=== PATIENT | male | born 1955 | race Caucasian/White ===

== ENCOUNTER 2020-09-19 09:04 | Outpatient (CLI) | payer MEDICARE, SELFPAY ==
[2020-09-19 09:24] LABS: Hematocrit 47.6 % (37.0-46.0); Hemoglobin 15.4 g/dL (12.4-15.3); Mean Corpuscular HGB Conc 32.4 g/dL (32.0-36.0); Mean Corpuscular Hemoglobin 30.7 pg (27.0-31.0); Mean Corpuscular Volume 94.8 fL (78.0-102.0); Platelet Count Result 215 K/mm3 (150-420); Red Blood Count 5.02 M/mm3 (4.70-6.10); White Blood Count 7.3 K/mm3 (4.8-10.8)
[2020-09-19 10:29] LABS: Alanine Aminotransferase 32 U/L (16-63); Albumin Level 4.1 g/dL (3.4-5.0); Alkaline Phosphatase 45 U/L (46-116); Anion Gap 6 mmol/L (8-16); Aspartate Amino Transferase 38 U/L (15-37); Bilirubin,Total 0.5 mg/dL (0.00-1.00); Blood Urea Nitrogen 24 mg/dL (7-18); Calcium 9.3 mg/dL (8.5-10.1); Carbon Dioxide 29 mmol/L (21-32); Chloride 104 mmol/L (98-108); Cholesterol 159 mg/dL (0-200); Estimated Glomerular Filt Rate 44; Folic Acid 13.5 ng/mL (8.6->20); Glucose 92 mg/dL (70-99); HDL Direct 28 mg/dL (40-60); LDL Cholesterol Calculated 67 mg/dL (<130); Osmolality Calculated 292 mOsm/kg (285-295); Potassium 4.9 mmol/L (3.5-5.1); Sodium 139 mmol/L (136-145); Total Protein 7.3 g/dL (6.4-8.2); Triglycerides 319 mg/dL (0-150); Vitamin B12 1112 pg/mL (193-986)
[2020-09-19 10:34] LABS: Free T4 Free Thyroxine Reflex 0.99 ng/dL (0.76-1.46); Thyroid Stimulating Hormone Reflex 4.63 u/IU/mL (0.36-3.74)
== END 2020-09-19 09:05 | disposition home or self-care (01) ==
PROVIDERS: PCP Family Medicine; Visit Provider Family Medicine
DX: E78.5 Hyperlipidemia, unspecified (principal); F32.9 Major depressive disorder, single episode, unspecified; M10.9 Gout, unspecified; I25.10 Atherosclerotic heart disease of native coronary artery without angina pectoris; E53.8 Deficiency of other specified B group vitamins
CPT/HCPCS: 36415; 80053; 80061; 82607; 82746; 84439; 84443; 85027

== ENCOUNTER 2020-09-29 07:18 | Outpatient (CLI) | payer MEDICARE, SELFPAY ==
--- NOTE | ~2020-09-29 | XR_ITS ---
XR knee RT 3V DATE: 09/29/2020 08:42 INDICATION: Anterior knee pain for 2 months. No known injury. TECHNIQUE: [place], AP and lateral views COMPARISON: None FINDINGS: No fracture or dislocation or joint effusion. No periosteal reaction or bone destruction. J oint spaces are well preserved. Minimal periarticular spurring of the patella. No radiopaque intra-ar ticular loose body or chondrocalcinosis. 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
--- NOTE | 2020-09-29 07:25 | EST_ITS ---
Patient Info Name: Raymundo Lopez Age: 65 years : 1955 Gender: Male Ht: 68 in Wt: 208 lbs BSA: 2.16 m2 HR: 60 bpm BP: 155 / 86 mmHg Heart Rhythm: Sinus Rhythm Technical Quality: Excellent Exam Date: 09/29/2020 8:52 AM Exam Location: [facility] [place] Patient Status: Outpatient Admit Date: 09/29/2020 Staff Ordering Physician: Kingsley Sosa DO Attending Provider: Kingsley Sosa DO Referring Physician: Kingsley Sosa DO; Exercise Technologist: Silvia Vizcarra CRT Exercise Physician: Samra Machado CEP Exam Type: CA stress test treadmill w NM Study Info Indications AthleroscleroticHeartDisease - An exercise stress test was performed. History/Risk Factors Coronary Artery Disease (CAD) Yes History/Risk Factors CAD. Summary 1. 1. Negative Hernán exercise stress test for ischemic ST changes by ECG criteria. 2. 2. Reduced functional capacity, achieving 7.9 METs of workload. 3. 3. Baseline hypertension with hypertensive response to exercise. 4. 4. Appropriate HR response to exercise. 5. 5. Appropriate HR recovery at 1 minute post exercise. 6. 6. Nuclear scan to follow and will be reported separately. Please correlate with it. Protocol: Hernán Stress ECG Details Stage: REST Duration (min): 0 min : 12 sec Speed (mph): 0.0 Grade (%): 0 HR (bpm): 61 SBP (mmHg): --- DBP (mmHg): --- METS: --- Stage: REST Duration (min): 7 min : 39 sec Speed (mph): 0.0 Grade (%): 0 HR (bpm): 60 SBP (mmHg): --- DBP (mmHg): --- METS: --- Stage: STAGE 1 Duration (min): 1 min : 0 sec Speed (mph): 1.7 Grade (%): 10 HR (bpm): 83 SBP (mmHg): --- DBP (mmHg): --- METS: --- Stage: STAGE 1 Duration (min): 2 min : 0 sec Speed (mph): 1.7 Grade (%): 10 HR (bpm): 95 SBP (mmHg): --- DBP (mmHg): --- METS: --- Stage: STAGE 1 Duration (min): 3 min : 0 sec Speed (mph): 1.7 Grade (%): 10 HR (bpm): 103 SBP (mmHg): 168 DBP (mmHg): 86 METS: --- Stage: STAGE 2 Duration (min): 1 min : 0 sec Speed (mph): 2.5 Grade (%): 12 HR (bpm): 118 SBP (mmHg): 168 DBP (mmHg): 86 METS: --- Stage: STAGE 2 Duration (min): 2 min : 0 sec Speed (mph): 2.5 Grade (%): 12 HR (bpm): 133 SBP (mmHg): 168 DBP (mmHg): 86 METS: --- Stage: STAGE 2 Duration (min): 3 min : 0 sec Speed (mph): 2.5 Grade (%): 12 HR (bpm): 141 SBP (mmHg): 198 DBP (mmHg): 98 METS: --- Stage: STAGE 3 Duration (min): 0 min : 30 sec Speed (mph): 3.4 Grade (%): 14 HR (bpm): 149 SBP (mmHg): 198 DBP (mmHg): 98 METS: --- Stage: RECOVERY Duration (min): 0 min : 29 sec Speed (mph): 0.0 Grade (%): 0 HR (bpm): 146 SBP (mmHg): 198 DBP (mmHg): 98 METS: --- Stage: RECOVERY Duration (min): 1 min : 29 sec Speed (mph): 0.0 Grade (%): 0 HR (bpm): 122 SBP (mmHg): 198 DBP (m
--- NOTE | 2020-09-29 11:39 | WPDCARIOSTRE ---
Nuclear Stress Test INDICATIONS Chest pain PROCEDURE Patient exercised on a Hernán treadmill protocol and after achieving target heart rate, 35 mCi of cardiolyte was injected. Multiple tomographic images were obtained. These were of good quality. There is no evidence of perfusion defects noted during stress imaging. A separate resting images were obtained after patient was injected with 10.7 mCi of cardiolyte. Multiple tomographic images were obtained. These were of good quality. There is no evidence of perfusion defects noted during rest imaging. CONCLUSION 1. Normal myocardial perfusion imaging demonstrating no perfusion defects during stress or rest imaging. 2. No reversible ischemia. 3. Left ventriculogram demonstrated measured ejection fraction is normal at 62%. No wall motion abnormalities. 4. TID is normal at 1.03.
== END 2020-09-29 07:19 | disposition home or self-care (01) ==
LOC: CHSIMG 07:25
PROVIDERS: PCP Family Medicine; Visit Provider Family Medicine
DX: I25.10 Atherosclerotic heart disease of native coronary artery without angina pectoris (principal); M25.569 Pain in unspecified knee
CPT/HCPCS: 73562; 78452; 93017; A9502

== ENCOUNTER → 2020-10-06 01:08 | Outpatient (CLI) | payer MEDICARE, OTHER, SELFPAY ==
[2020-10-06 18:28] LABS: SARS-CoV-2 RNA PCR Negative
== END ==
PROVIDERS: PCP Family Medicine; Visit Provider Surgery
DX: Z01.812 Encounter for preprocedural laboratory examination (principal); Z20.822 Contact with and (suspected) exposure to COVID-19
CPT/HCPCS: C9803; U0003; U0005

== ENCOUNTER 2020-10-09 01:26 | Day surgery (SDC) | payer MEDICARE, OTHER, SELFPAY ==
[2020-09-26 16:14] VITALS: BMI 30.4
[2020-10-09 07:26] VITALS: BP 116/86; PULSE 85; RESP 18; TEMP 36.7; O2SAT 97; BMI 30.8
[2020-10-09] MEDS: LACTATED RINGERS 1,000 ML 150 ML IV CONT (07:35)
--- NOTE | 2020-10-09 07:52 | WPDANESEPPF ---
Anes - Initial Pre Proc Eval Procedure: Operation Date: 10/09/20 08:30 Proposed Procedures p Screening Colonoscopy - Jairo Espinoza DO Date/Time: 10/09/20 07:52 Surgeon: Jairo Espinoza DO Pre Op Diagnosis: family hx colon CA Patient Data Age: 65 Gender: M Height: 1.73 m Weight: 92 kg Last Vital Signs Temp 36.7 C 10/09/20 07:26 Pulse 85 10/09/20 07:26 Resp 18 10/09/20 07:26 BP 116/86 10/09/20 07:26 Pulse Ox 97 10/09/20 07:26 Allergies Allergy/AdvReac Type Severity Reaction Status Date / Time Penicillins Allergy Unknown Swelling Verified 10/09/20 07:24 Home Medications Medication Instructions Recorded Confirmed Type brimonidine 0.2 % eye drops 1 drp OPHTHALMIC (EYE) Q8H 09/19/20 09/26/20 History bupropion HCl 75 mg tablet 75 mg PO BID 09/19/20 09/26/20 History dorzolamide 2 % eye drops 1 drp OPHTHALMIC (EYE) TID 09/19/20 09/26/20 History hydroxyzine HCl 25 mg tablet 25 mg PO BID PRN 09/19/20 09/26/20 History latanoprost 0.005 % eye drops 1 drp OPHTHALMIC (EYE) DAILY 09/19/20 09/26/20 History naproxen 500 mg tablet 500 mg PO BID PRN 09/19/20 09/26/20 History simvastatin 40 mg tablet 40 mg PO DAILY 09/19/20 09/26/20 History levothyroxine 50 mcg tablet See Rx Instructions .ROUTE 09/22/20 09/26/20 Rx .COMPLEX #90 tablet lisinopril 5 mg tablet See Rx Instructions .ROUTE 09/22/20 09/26/20 Rx .COMPLEX #90 tablet citalopram 20 mg PO DAILY 09/26/20 09/26/20 History Patient hx anesthesia problems: none Family hx anesthesia problems: none PMFSH Past Medical History Medical History (Updated 10/09/20 @ 07:54 by Natanael Perez MD) Coronary artery disease Depression Gout History of stroke 25yrs ago HTN (hypertension) Hyperlipidemia Hypothyroidism Obesity Surgical History Surgical History (Updated 09/19/20 @ 08:00 by Shana Castaneda) History of lithotripsy History of vasectomy Hx of tonsillectomy Family History Family History (Updated 09/19/20 @ 08:02 by Shana Castaneda) Father Carcinoma of colon Mother , Age 98 Old age Social History Social History (Updated 09/19/20 @ 08:01 by Shana Castaneda) Smoking status: Never smoker Alcohol use details: infrequent Living arrangements: with family Gender identity (if verbalized by the patient): Male Spiritual care concerns: No Anes - Eval Final PreProcedure Day of Procedure 10/09/20 07:52 Patient weight: obese Heart: regular rate and rhythm Lungs: clear to auscultation and normal air movement Airway: Mallampati scale class II Neurological: alert and oriented Last oral intake: >/= 8 hours ASA classification: III Emergent: no Anesthetic plan: proceed Anesthesia type and monitoring: general GIVS Informed Consent: The patient's anesthetic plan and its attendant risks and benefits were discussed with the patient/family/POA. Questions were solicited and answers provided to the satisfaction of the patient/family/POA.
--- NOTE | 2020-10-09 08:33 | PM.IMHP ---
H&P: HPI History of Present Illness Date/Time: 10/09/20 08:33 Chief Complaint: hx polyps Narrative: Raymundo Lopez is a 65 year old male who presents for colonoscopy. Last done 6 years ago and polyps removed. He has fam hx colon cancer in his father. Denies blood in stool. Review of Systems Review of Systems: All systems reviewed & are unremarkable except as noted in HPI and below Constitutional: Constitutional: Denies chills, Denies fever(s), Denies headache(s) and Denies weight loss Eyes: Eyes: Denies change in vision ENT: Denies dizziness, Denies headache(s), Denies neck mass and Denies throat swelling Cardiovascular: Cardiovascular: Denies chest pain, Denies lightheadedness and Denies dyspnea Respiratory: Respiratory: Denies cough, Denies dyspnea and Denies wheezing Gastrointestinal: Gastrointestinal: Denies abdominal pain, Denies change in bowel habits, Denies nausea and Denies vomiting Genitourinary: Genitourinary: Denies hematuria and Denies dysuria Musculoskeletal: Musculoskeletal: Reports as per HPI Integumentary/Breasts: Skin/Breast: Reports as per HPI Neurologic: Denies dizziness and Denies headache(s) Allergic/Immunologic: Allergic/Immunologic: Denies throat swelling and Denies wheezing PMFSH Past Medical History Medical History Coronary artery disease Depression Gout History of stroke 25yrs ago HTN (hypertension) Hyperlipidemia Hypothyroidism Obesity Surgical History Surgical History History of lithotripsy History of vasectomy Hx of tonsillectomy Family History Family History Father Carcinoma of colon Mother , Age 98 Old age Social History Social History Smoking status: Never smoker Alcohol use details: infrequent Living arrangements: with family Gender identity (if verbalized by the patient): Male Spiritual care concerns: No Meds Home Medications and Allergies Home Medications Medication Instructions Recorded Confirmed Type brimonidine 0.2 % eye drops 1 drp OPHTHALMIC (EYE) Q8H 09/19/20 09/26/20 History bupropion HCl 75 mg tablet 75 mg PO BID 09/19/20 09/26/20 History dorzolamide 2 % eye drops 1 drp OPHTHALMIC (EYE) TID 09/19/20 09/26/20 History hydroxyzine HCl 25 mg tablet 25 mg PO BID PRN 09/19/20 09/26/20 History latanoprost 0.005 % eye drops 1 drp OPHTHALMIC (EYE) DAILY 09/19/20 09/26/20 History naproxen 500 mg tablet 500 mg PO BID PRN 09/19/20 09/26/20 History simvastatin 40 mg tablet 40 mg PO DAILY 09/19/20 09/26/20 History levothyroxine 50 mcg tablet See Rx Instructions .ROUTE 09/22/20 09/26/20 Rx .COMPLEX #90 tablet lisinopril 5 mg tablet See Rx Instructions .ROUTE 09/22/20 09/26/20 Rx .COMPLEX #90 tablet citalopram 20 mg PO DAILY 09/26/20 09/26/20 History Allergies Allergy/AdvReac Type Severity Reaction Status Date / Time Penicillins Allergy Unknown Swelling Verified 10/09/20 07:24 Vital Signs Vital Signs - 24 hr 10/09/20 07:26 Temperature 36.7 C Pulse Rate 85 Respiratory Rate 18 Blood Pressure 116/86 Pulse Oximetry 97 Exam Const: General: no acute distress and alert Orientation/consciousness: patient oriented x3 HENMT: Head: normocephalic and atraumatic Ears: hearing grossly normal bilaterally General nose exam: Normal nares present Mouth: Yes Normal oral and palatal mucosa present Eyes: Periorbital: periorbital findings normal Sclera: sclerae normal EOM: EOMs intact bilaterally Neck: Neck: normal visual inspection, no lymphadenopathy and trachea midline Chest: Chest palpation & inspection: normal inspection of the chest Resp: Effort & Inspection: normal respiratory effort Auscultation: clear to auscultation bilaterally Cardio: Jugular venous distension: no JVD
[2020-10-09 09:03] VITALS: BP 86/56; PULSE 67; RESP 19; O2SAT 94
[2020-10-09 09:13] VITALS: BP 111/82; PULSE 69; RESP 19; O2SAT 97
[2020-10-09 09:23] VITALS: BP 104/87; PULSE 76; RESP 21; O2SAT 98
== END 2020-10-09 09:37 | disposition home or self-care (01) ==
PROVIDERS: PCP Family Medicine; Visit Provider Surgery
PROC: 0DJD8ZZ Inspection of Lower Intestinal Tract, Via Natural or Artificial Opening Endoscopic (ICD-10-PCS; CPT 45378; principal; 2020-10-09 08:30)
DX: Z12.11 Encounter for screening for malignant neoplasm of colon (principal); D12.5 Benign neoplasm of sigmoid colon; K63.5 Polyp of colon; K57.30 Diverticulosis of large intestine without perforation or abscess without bleeding; Z80.0 Family history of malignant neoplasm of digestive organs; I25.10 Atherosclerotic heart disease of native coronary artery without angina pectoris; I10 Essential (primary) hypertension; E78.5 Hyperlipidemia, unspecified; E03.9 Hypothyroidism, unspecified; M10.9 Gout, unspecified; F32.9 Major depressive disorder, single episode, unspecified; Z86.73 Personal history of transient ischemic attack (TIA), and cerebral infarction without residual deficits; E66.9 Obesity, unspecified; Z68.30 Body mass index [BMI] 30.0-30.9, adult
CPT/HCPCS: 45380; 88305; J2704; J7120

== ENCOUNTER 2020-12-23 10:13 | Outpatient (CLI) | payer MEDICARE, OTHER, SELFPAY ==
--- NOTE | ~2020-12-23 | CT_ITS ---
EXAMINATION: CT sinus wo con DATE: 12/23/2020 10:39 INDICATION: Sinusitis TECHNIQUE: Computed tomography (CT) of the paranasal sinuses was performed without intravenous contra st. The dose-length product was 304.88 mGy-cm. Automated exposure control and iterative reconstructio n technique were employed. COMPARISON: None FINDINGS: There is mucosal thickening of the frontal, ethmoid, sphenoid and maxillary sinuses. Mastoi ds are pneumatized. No significant mucoperiosteal reaction. The ostiomeatal units are at least partia lly occluded by soft tissue. IMPRESSION: 1. Moderate pansinusitis. Reviewed, dictated and finalized at location B. IMPRESSION: 1. Moderate pansinusitis.
== END 2020-12-23 10:14 | disposition home or self-care (01) ==
LOC: CHSIMG 10:15
PROVIDERS: PCP Family Medicine; Visit Provider Family Medicine
DX: J32.9 Chronic sinusitis, unspecified (principal)
CPT/HCPCS: 70486

== ENCOUNTER 2021-03-09 12:20 | Outpatient (CLI) | payer OTHER, SELFPAY ==
[2021-03-09 13:16] LABS: Uric Acid 7.3 mg/dL (3.5-7.2)
--- NOTE | 2021-03-10 10:12 | WPDPFTINT ---
PFT Procedure Performed PFT Procedure Performed Spirometry with Pre/Post Bronchodilator Plethysmography (Lung Vol) Diffusing Cap (DLCO) Flow Vol Loop PFT Interpretation DOS: 03/10/2021 REQUESTING: Dr Sosa REASON FOR TESTING: Wheezing PULMONARY FUNCTION TESTS Results are reliable and reproducible. Spirometry: The 1 is 65% predicted, 2.0 L. FVC is 75%. The FEV1/FVC ratio is 85% normal. FEF 25-75 is 34% predicted. There is no change with bronchodilator administration. Lung volumes: Total lung capacity is normal 88% predicted vital capacity is 75% predicted. Residual volume is normal 106% predicted. RV/TLC is increased 46% and this is consistent with air trapping. Airway resistance is elevated to 142%. ERV is extremely low 0.16 L. Diffusion: DLCO is 107%, normal. Flow volume loop: Scooping of the expiratory limb IMPRESSION: This full pulmonary function study shows a mild obstructive ventilatory impairment which is more significant in the small airways, air trapping, increased airway resistance with normal diffusion. The lack of response to bronchodilator does not preclude use if clinically indicated. Cee De Paz MD
== END 2021-03-09 12:21 | disposition home or self-care (01) ==
LOC: CHSLAB 12:22
PROVIDERS: PCP Family Medicine; Visit Provider Family Medicine
DX: M10.9 Gout, unspecified (principal)
CPT/HCPCS: 36415; 84550

== ENCOUNTER 2021-03-10 08:15 | Outpatient (CLI) | payer OTHER, SELFPAY | END 2021-03-10 08:16 | disposition home or self-care (01) | PROVIDERS: PCP Family Medicine; Visit Provider Family Medicine | DX: R06.2 Wheezing (principal) | CPT/HCPCS: 94060; 94726; 94729 ==

== ENCOUNTER 2021-06-02 11:44 | Emergency (ER) | payer OTHER, SELFPAY ==
--- NOTE | 2021-06-02 11:55 | ED.ALLEREA ---
HPI - Allergic Reaction General Chief complaint: Allergic Reaction Stated complaint: stung by wasps is allergic Time Seen by Provider: 06/02/21 11:55 Source: patient Mode of arrival: ambulatory Limitations: no limitations History of Present Illness HPI narrative: 66-year-old man comes in today after being stung by multiple wasps while he was mowing. Patient states they are on his back arms legs. States that feels a little swelling in his throat and he feels short of breath and he has some itching. He denies syncope, chest pain, wheezing, vomiting. States that he passed out the last time he was stung by an insect. He denies history anaphylactic symptoms after bee or wasp stings. complaint: allergic reaction Onset (ago): minute(s) Exposure: insect bite Known history of allergy to: pcn Symptoms: itching and difficulty breathing Severity: moderate Treatment prior to arrival: none Related Data Home Medications Medication Instructions Recorded Confirmed brimonidine 0.2 % eye drops 1 drp OPHTHALMIC (EYE) Q8H 09/19/20 03/12/21 dorzolamide 2 % eye drops 1 drp OPHTHALMIC (EYE) TID 09/19/20 03/12/21 Allergies Allergy/AdvReac Type Severity Reaction Status Date / Time Penicillins Allergy Unknown Swelling Verified 06/02/21 12:33 Review of Systems Review of Systems: All systems reviewed & are unremarkable except as noted in HPI and below Constitutional: Constitutional: Denies chills and Denies fever(s) ENT: Denies dysphagia, Denies nasal congestion and Denies sore throat Cardiovascular: Cardiovascular: Denies chest pain and Denies radiating jaw, neck or arm pain Respiratory: Respiratory: Denies cough, Reports dyspnea and Denies wheezing Gastrointestinal: Gastrointestinal: Denies abdominal pain, Denies diarrhea, Denies nausea and Denies vomiting Musculoskeletal: Musculoskeletal: Denies arthralgias and Denies joint swelling Integumentary/Breasts: Skin/Breast: Reports erythema (at sting sites) and Reports rash Neurologic: Denies vertigo, Denies dizziness and Denies syncope Allergic/Immunologic: Allergic/Immunologic: Denies lip swelling, Reports throat swelling and Denies tongue swelling PMFSH Past Medical History Medical History Coronary artery disease Depression Gout History of stroke 25yrs ago HTN (hypertension) Hyperlipidemia Hypothyroidism Obesity Surgical History Surgical History History of lithotripsy History of vasectomy Hx of tonsillectomy Family History Family History Father Carcinoma of colon Mother , Age 98 Old age Social History Social History Smoking status: Never smoker Alcohol use details: infrequent Gender identity (if verbalized by the patient): Male Spiritual care concerns: No Exam Const: General: healthy appearing and alert Orientation/consciousness: patient oriented x3 Limitations: no limitations Other: Mild acute distress. Anxious. HENMT: Head: normal to inspection Ears: external ears normal, TM's normal bilaterally and EAC's normal General nose exam: Normal nares present Face and sinus: normal facial exam Mouth: Yes moist mucous membranes Throat: posterior oropharynx normal Eyes: Conjunctivae: conjunctivae normal Pupils: Equal, round and reactive pupils present EOM: EOMs intact bilaterally Chest: Chest palpation & inspection: normal inspection of the chest Resp: Effort & Inspection: normal respiratory effort and not labored Auscultation: no rales, no rhonchi and no wheezes Cardio: Rate: tachycardic Rhythm: regular rhythm GI: GI Palp: Yes Soft to palpation and No Tenderness to palpation present (GI) Skin: General skin exam: normal color, no jaundice and no pallor Other: Local swelling and erythema your bites
--- NOTE | 2021-06-02 12:00 | ECG_ITS ---
Measurements Intervals [place] Rate: 84 P: 77 [place]: 178 QRS: 57 QRSD: 94 T: 76 QT: 365 QTc: 433 Interpretive Statements SINUS RHYTHM DELAYED PRECORDIAL R/S TRANSITION BASELINE ARTIFACT- AVL BORDERLINE ECG Electronically Signed On 06-02-2021 13:00:27 CDT by Rajat Moore D.O.
[2021-06-02] MEDS: diphenhydrAMINE HCl INJ 50 MG/ML VIAL IV PUSH (12:13)
[2021-06-02] MEDS: methylPREDNISolone SOD SUCC 125 MG VIAL IV PUSH (12:13)
[2021-06-02 12:34] VITALS: BP 138/76; PULSE 104; RESP 20; TEMP 36.9; O2SAT 93
[2021-06-02 13:55] VITALS: BP 135/77; PULSE 90; RESP 17; O2SAT 97
--- NOTE | 2021-06-02 13:56 | PC.NURSE ---
pt reporting, 'the medication helped a little bit but the itching is still pretty bad.
== END 2021-06-02 14:36 | disposition home or self-care (01) ==
PROVIDERS: Emergency Provider Emergency Medicine; PCP Family Medicine
DX: T63.461A Toxic effect of venom of wasps, accidental (unintentional), initial encounter (principal); I25.10 Atherosclerotic heart disease of native coronary artery without angina pectoris; I10 Essential (primary) hypertension; E03.9 Hypothyroidism, unspecified; E66.9 Obesity, unspecified; M10.9 Gout, unspecified; Z86.73 Personal history of transient ischemic attack (TIA), and cerebral infarction without residual deficits; F32.A Depression, unspecified
CPT/HCPCS: 93005; 96374; 96375; 99283; 99284; J1200; J2930

== ENCOUNTER → 2021-07-13 09:05 | Outpatient (CLI) | payer OTHER, SELFPAY ==
--- NOTE | ~2021-07-13 | CT_ITS ---
EXAMINATION: CT sinus wo con DATE: 07/13/2021 09:32 INDICATION: Deviated nasal septum TECHNIQUE: Computed tomography (CT) of the paranasal sinuses was performed without contrast. Iterativ e reconstruction technique was employed. Exam dose: 293.28 mGy-cm total exam DLP. COMPARISON: 12/23/2020 CT sinuses FINDINGS: There is rightward deviation of the nasal septum. There is prominent soft tissue swelling of the middle and inferior nasal turbinates. There is intralamellar cell of the right middle nasal turbinate. The osteomeatal units are patent, with mild soft tissue thickening of the maxillary ostium and infund ibulum bilaterally. There is mild nodular soft tissue thickening of the maxillary sinuses, right greater than left. There is mild soft tissue thickening of the ethmoid air cells. There is a focal soft tissue lesion of the right sphenoid sinus measuring approximately 3.7 x 8.5 mm, likely a mucous retention cyst. The mastoid air cells are normally developed and aerated. IMPRESSION: Rightward deviation of the nasal septum Prominent of the nasal turbinates Interlamellar cell of right middle nasal turbinate Mild soft tissue thickening of the maxillary ostium and infundibulum bilaterally Mild soft tissue thickening of the maxillary sinuses, right greater than left, and ethmoid air cells Small mucus retention cyst of right sphenoid sinus Reviewed, dictated and finalized at Location A. Reviewed, dictated and finalized at location A. 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
== END ==
PROVIDERS: PCP Family Medicine; Visit Provider Otolaryngology
DX: J34.2 Deviated nasal septum (principal); J32.9 Chronic sinusitis, unspecified; J34.3 Hypertrophy of nasal turbinates; J34.89 Other specified disorders of nose and nasal sinuses; R09.81 Nasal congestion; R09.82 Postnasal drip
CPT/HCPCS: 70486

== ENCOUNTER 2022-01-29 14:19 | Outpatient (CLI) | payer OTHER, SELFPAY ==
--- NOTE | ~2022-01-29 | XR_ITS ---
EXAMINATION: XR chest 2V DATE: 01/29/2022 14:46 INDICATION: Shortness of breath TECHNIQUE: PA and lateral views of the chest were obtained. COMPARISON: None FINDINGS: The lungs are clear with no focal airspace opacities, pulmonary edema, pleural effusion or pneumothor ax. The cardiomediastinal silhouette is normal. Chronic appearing mild anterior wedging at a lower th oracic vertebral body, likely T11. IMPRESSION: 1. No acute cardiopulmonary disease. Reviewed, dictated and finalized at location B.
== END 2022-01-29 14:20 | disposition home or self-care (01) ==
LOC: CHSIMG 14:20
PROVIDERS: PCP Family Medicine; Visit Provider Nurse Practitioner Family
DX: R06.02 Shortness of breath (principal)
CPT/HCPCS: 71046

== ENCOUNTER 2022-02-25 14:15 | Outpatient (CLI) | payer OTHER, SELFPAY ==
[2022-02-25 14:26] LABS: Basophils Absolute Auto 0.05 K/mm3 (0.00-0.10); Basophils Percent Auto 0.6 % (0.0-1.0); Eosinophils Absolute Auto 0.11 K/mm3 (0.02-0.50); Eosinophils Percent Auto 1.3 % (1.0-6.0); Hematocrit 50.1 % (37.0-46.0); Hemoglobin 15.6 g/dL (12.4-15.3); Immature Granulocyte Absolute 0.04 K/mm3 (0.00-0.00); Immature Granulocyte Percent A 0.5 % (0.0-0.0); Lymphocytes Absolute Auto 1.27 K/mm3 (1.10-4.50); Lymphocytes Percent Auto 14.4 % (18.0-42.0); Mean Corpuscular HGB Conc 31.1 g/dL (32.0-36.0); Mean Corpuscular Hemoglobin 30.4 pg (27.0-31.0); Mean Corpuscular Volume 97.5 fL (78.0-102.0); Mean Platelet Volume 11.3 fl (8.7-11.0); Monocytes Absolute Auto 0.65 K/mm3 (0.10-0.90); Monocytes Percent Auto 7.4 % (2.0-11.0); Neutrophils Absolute Auto 6.7 K/mm3 (1.7-7.2); Neutrophils Percent Auto 75.8 % (50.0-70.0); Platelet Count Result 204 K/mm3 (150-420); Red Blood Count 5.14 M/mm3 (4.70-6.10); Red Cell Distribution Width 13.2 % (11.6-14.4); White Blood Count 8.8 K/mm3 (4.8-10.8)
== END 2022-02-25 14:16 | disposition home or self-care (01) ==
LOC: CHSLAB 14:16
PROVIDERS: PCP Family Medicine; Visit Provider Nurse Practitioner Family
DX: K21.9 Gastro-esophageal reflux disease without esophagitis (principal); J32.9 Chronic sinusitis, unspecified; R05.3 Chronic cough; J30.9 Allergic rhinitis, unspecified
CPT/HCPCS: 36415; 82785; 85025; 86003

== ENCOUNTER 2022-03-12 12:37 | Outpatient (CLI) | payer OTHER, SELFPAY ==
--- NOTE | ~2022-03-12 | CT_ITS ---
EXAMINATION: CT diagnostic chest wo con DATE: 03/12/2022 12:56 INDICATION: Chronic cough. TECHNIQUE: Computed tomography (CT) of the chest was performed without intravenous contrast. The dose -length product was 369.54 mGy-cm. Automated exposure control and iterative reconstruction technique were employed. COMPARISON: None FINDINGS: There are nonenlarged mediastinal lymph nodes, likely reactive. Elevated right diaphragm, l ikely due to phrenic nerve paralysis. No significant pleural or pericardial effusion. There is left r enal atrophy/scarring with a hypodense lesion measuring 1.8 cm, likely a cyst. There is an 8 mm nonob structing left renal stone. No significant pleural or pericardial effusion. There are a few 2 mm uppe r lobe nodules, likely benign. There is dependent atelectasis. There is lingular atelectasis. No pneu mothorax. Mild thoracic spondylosis. IMPRESSION: 1. Small upper lobe nodules measuring 2 mm or less, likely benign. Consider follow-up low dose CT julius st in 12 months. 2: Elevated right diaphragm, suspicious for diaphragmatic paralysis. 3: Left renal atrophy/scarring. Nonobstructing left nephrolithiasis measuring 8 mm. Reviewed, dictated and finalized at location A. IMPRESSION: 1. Small upper lobe nodules measuring 2 mm or less, likely benign. Consider fol low-up low dose CT chest in 12 months. 2: Elevated right diaphragm, suspicious for diaphragmatic paralysis. 3: Left renal atrophy/scarring. Nonobstructing left nephrolithiasis measuring 8 mm.
== END 2022-03-12 12:38 | disposition home or self-care (01) ==
PROVIDERS: PCP Family Medicine; Visit Provider Nurse Practitioner Family
DX: R05.3 Chronic cough (principal); R91.8 Other nonspecific abnormal finding of lung field; N20.0 Calculus of kidney; N26.1 Atrophy of kidney (terminal)
CPT/HCPCS: 71250

== ENCOUNTER 2022-04-27 09:46 | Outpatient (CLI) | payer OTHER, SELFPAY ==
--- NOTE | 2022-04-27 10:37 | PCRCNOTE ---
PT UNABLE TO PERFORM METHACHOLINE CHALLENGE BECAUSE HIS FEV1 IS 45% AFTER COMPLETING PRE-SPIROMETRY. THIS IS A ABSOLUTE CONTRAINDICATION.
== END 2022-04-27 09:47 | disposition home or self-care (01) ==
LOC: ANHPFT 09:49
PROVIDERS: PCP Family Medicine; Visit Provider Internal Medicine Pulmonary Disease
DX: R06.02 Shortness of breath (principal)
CPT/HCPCS: 99199; J7674